=== PATIENT | male | born 1985 | race Caucasian/White ===

== ENCOUNTER 2020-03-09 21:08 | Emergency (ER) | payer OTHER, SELFPAY ==
[2020-03-09 21:23] VITALS: BP 155/97; PULSE 65; RESP 19; TEMP 37; O2SAT 100
--- NOTE | 2020-03-09 21:58 | ED.WOUNDLAC ---
HPI - Wound/Laceration General Chief Complaint: Wound/Laceration Stated Complaint: left leg bleeding Time Seen by Provider: 03/09/20 21:44 Source: patient and family Mode of arrival: ambulatory Limitations: no limitations History of Present Illness HPI narrative: Patient is a 34-year-old male who presents with a left villafana laceration occurred just prior to arrival patient was mowing when a rock struck him in the left villafana causing a small laceration patient is unsure as to tetanus notes mild aching pain worse with activity and movement. Related Data Allergies Allergy/AdvReac Type Severity Reaction Status Date / Time No Known Allergies Allergy Unverified 03/01/18 11:44 Review of Systems Review of Systems: All systems reviewed & are unremarkable except as noted in HPI and below PMFSH Social History Social History (Updated 03/09/20 @ 21:59 by Eduardo Deal PA-C) Smoking status: Never smoker Gender identity (if verbalized by the patient): Male Exam Narrative: Exam Narrative: GENERAL: Well-appearing, well-nourished, and in no acute distress. HEAD: Normocephalic, atraumatic. EYES: PERRLA and EOMI. ENT: Nares clear, no rhinorrhea or epistaxis. Mucous membranes moist. EXTREMITIES: Normal range of motion. No edema. SKIN: Warm, dry, no rash. 1.5 cm linear laceration left villafana NEURO: No focal deficits. Alert and oriented x3. Neurovascularly intact PSYCH: Normal mood and affect. Course Course Emergency Course: Patient in the room in no distress aware of case findings treatment plan and diagnosis Vital Signs Vital signs: Vital Signs Temperature 98.6 F 03/09/20 21:23 Pulse Rate 65 03/09/20 21:23 Respiratory Rate 03/09/20 21:23 Blood Pressure 155/97 H 03/09/20 21:23 Pulse Oximetry 100 03/09/20 21:23 Temperature 98.6 F 03/09/20 21:23 Pulse Rate 65 03/09/20 21:23 Respiratory Rate 19 03/09/20 21:23 Blood Pressure 155/97 H 03/09/20 21:23 Pulse Oximetry 100 03/09/20 21:23 Procedures Laceration Laceration 1: Date: 03/09/20 Time: 22:01 Site: lower extremity Side (If applicable): left Size (cm): 1.5 Description: linear Pre-repair: wound explored, irrigated and irrigated extensively ====== Skin Level ====== Skin layer closed with: mary Number of sutures: 2 ====== Subcutaneous Layer ====== ====== Muscle Layer ====== ====== Tendon Layer ====== Dressing: Antibiotic ointment 4 x 4 and Coban placed post procedure MDM - Wound/Laceration MDM Narrative Medical decision making narrative: Patients injury or pain is consistent with musculoskeletal etiology. No signs of neurological or vascular compromise on exam. Compartments and tisues are soft without signs of compartment syndrome. Pain is felt appropriate for further evaluation on an outpatient basis. Discharge Plan Discharge Clinical Impression: Laceration Patient Disposition: Home, Self-Care Condition: Stable Instructions: Antibiotic Form, Laceration (ED) Additional Instructions: Keep wound clean and dry. Do not soak, take baths, or swim until wound is completely healed. If any signs of infection such as redness, swelling, increasing pain, drainage of purulent discharge, streaks up your extremity develop, seek medical attention immediately. Followup with your primary care provider in [7] days for suture removal. [] Follow-up/Referrals: PHYSICIAN,FLOOR MOLDER [Primary Care Provider] - Eldon Gutierrez MD [Physician] - Stand Alone Forms: Work/School Release IP
[2020-03-09] MEDS: TETANUS,DIPHTHERIA,AC PERTUSSIS ADULT (0.5 ML) BOOSTRIX IM (22:09)
[2020-03-09 22:12] VITALS: BP 139/96; PULSE 68; RESP 18; O2SAT 97
== END 2020-03-09 22:13 | disposition home or self-care (01) ==
PROVIDERS: Emergency Provider Emergency Medicine
DX: S81.812A Laceration without foreign body, left lower leg, initial encounter (principal); W20.8XXA Other cause of strike by thrown, projected or falling object, initial encounter; Z23 Encounter for immunization
CPT/HCPCS: 12001; 90471; 90715; 99282